=== PATIENT | female | born 1995 | race Caucasian/White ===

== ENCOUNTER 2016-11-22 17:50 | Emergency (ER) | payer OTHER | END 2016-11-22 22:10 | disposition home or self-care (01) | LOC: ER1 17:50 | DX: R07.9 Chest pain, unspecified (principal); E11.9 Type 2 diabetes mellitus without complications; I10 Essential (primary) hypertension; Z79.84 Long term (current) use of oral hypoglycemic drugs; Z79.899 Other long term (current) drug therapy | CPT/HCPCS: 71020; 84703; 93005; 99285 ==

== ENCOUNTER → 2017-03-14 | Outpatient (CLI) | payer OTHER | LOC: KOH-I 02-13 14:30 | DX: M66.272 Spontaneous rupture of extensor tendons, left ankle and foot (principal); M76.62 Achilles tendinitis, left leg | CPT/HCPCS: 73718 ==